=== PATIENT | male | born 1960 | race Caucasian/White ===

== ENCOUNTER → 2021-06-20 | Day surgery (SDC) | payer OTHER ==
[~2021-06-20] MED LIST: ACETAMINOPHEN 1000 MG/100 ML 100 ML IV ONE; ALLOPURINOL300 MG PO; ARMOUR THYROID60 MG PO; BENADRYL25 M1 PO; CRESTOR10 MG PO; EPINEPHRINE HCL 1:1000 1ML 1 MG/ML AMP ONE; FAMOTIDINE20 MG PO; LIDOCAINE 1% W/EPINEPHRINE 20 ML VIAL ONE; MULTI-VITAMIN1 EACH PO; OLMESARTAN-HCT1 EACH PO; fiber PO
[2021-06-20 08:50] VITALS: BP 154/92
== END | disposition home or self-care (01) ==
LOC: OR 05:27
PROVIDERS: ATTEND Otolaryngology Otolaryngology/Facial Plastic Surgery
DX: J32.0 Chronic maxillary sinusitis (principal); J32.2 Chronic ethmoidal sinusitis; J34.89 Other specified disorders of nose and nasal sinuses; G47.33 Obstructive sleep apnea (adult) (pediatric); I10 Essential (primary) hypertension; E78.5 Hyperlipidemia, unspecified; E03.9 Hypothyroidism, unspecified; N20.0 Calculus of kidney; Z88.8 Allergy status to other drugs, medicaments and biological substances
CPT/HCPCS: 30520; 31255; 31267; 88302; 88305; J0131; J0171